=== PATIENT | male | born 1950 | race Caucasian/White ===

== ENCOUNTER 2017-12-14 11:00 | Emergency (ER) | payer MEDICARE ==
[2017-12-14 11:13] VITALS: BP 130/69
--- NOTE | 2017-12-14 11:56 | ER Document Report ---
ED Skin Rash/Insect Bite/Abscs - General Chief Complaint: Abscess Stated Complaint: POSSIBLE ABSCESS Time Seen by Provider: 12/14/17 11:38 Mode of Arrival: Ambulatory Information source: Patient TRAVEL OUTSIDE OF THE [place] IN LAST 30 DAYS: No - HPI Patient complains to provider of: Tender/swollen area Onset: Last week Notes: Patient is here with complaints of possible abscess to the left buttocks/upper leg area. States that this is been present for the last few weeks. His son opened it up about a week and a half ago and it seemed to be better until about 2 days ago when it became sore and swollen again. He denies fever. He denies diabetes. He denies nausea, vomiting, diarrhea. Pain is worse with sitting on the area, better with standing or rest. He denies any other rashes. No abdominal pain. No chest pain or shortness of breath. He denies any other complaints at this time. - Related Data Allergies/Adverse Reactions: Sulfa (Sulfonamide Antibiotics) Allergy (Verified 12/14/17 11:05) Past Medical History - Social History Smoking Status: Never Smoker Chew tobacco use (# tins/day): No Frequency of alcohol use: None Drug Abuse: None Family History: Reviewed & Not Pertinent Patient has suicidal ideation: No Patient has homicidal ideation: No Renal/ Medical History: Denies: Hx Peritoneal Dialysis Past Surgical History: Reports: Hx Orthopedic Surgery Review of Systems - Review of Systems -: Yes All other systems reviewed and negative Physical Exam - Vital signs Vitals: Temp Pulse Resp BP Pulse Ox 97.6 F 63 16 130/69 H 97 12/14/17 11:11 12/14/17 11:11 12/14/17 11:11 12/14/17 11:11 12/14/17 11:11 - Notes Notes: GENERAL: alert, cooperative, nontoxic, no distress. HEAD: normocephalic, atraumatic EYES: conjunctiva pink without discharge, no external redness or swelling. EARS: no external swelling, no external redness NOSE: atraumatic, no external swelling MOUTH/THROAT: mucous membranes moist and pink NECK: soft, supple, full range of motion, no meningismus. CHEST: no distress, lungs clear and equal throughout. No wheezing, rales, rhonchi. CARDIAC: regular rate and rhythm, no murmur, normal capillary refill, normal pulses. BACK: full range of motion, no CVA tenderness. EXTREMITIES: full range of motion of all extremities. No redness, no swelling. NEURO: alert and oriented 3, no focal deficits, full range of motion of all extremities. PYSCH: appropriate mood, affect. Patient is cooperative. SKIN: pink, warm, dry, no rash. 2 cm fluctuant abscess to the left lower buttocks/upper leg area. Minimal redness over top the abscess, no significant surrounding cellulitis. Tenderness to palpation. No drainage. Course - Re-evaluation Re-evalutation: 12/14/17 12:37 The patient is nontoxic appearing with stable vitals. He is here with an abscess to the left buttocks/upper leg area. States that this was present a few weeks ago and his son drained it and it seemed to be better until a few days ago when it became swollen and tender again. He is noted to have a small abscess to this area. There is mild redness over top of the abscess only, no significant surrounding cellulitis. He is afebrile. He has a benign exam otherwise. An I&D was performed at the bedside with a moderate amount of purulent material drained. A sterile dressing was applied. The patient tolerated the procedure well with no immediate complications. Patient will be discharged home on clindamycin with instructions to apply warm compresses. He will be given a small supply of pain medication as well. Follow-up if not improved in the next 48 hours, sooner for worsening pain, fever, difficulty breathing or swallowing, or for any further concerns. The patient is noted to have elevated blood pressure during today's emergency department visit. The patient was informed of this finding. The patient was instructed that this may be related to pre-hypertension and requires further evaluation with a primary care provider. The patient has no hypertensive symptoms at this time. The patient's emergency department workup and current diagnosis were explained to the patient and or family. Follow-up instructions were provided. Medications if prescribed were discussed. Instructions for when to return to the emergency department including specific worrisome symptoms were discussed with the patient and/or family. - Vital Signs Vital signs: Temp Pulse Resp BP Pulse Ox 97.6 F 63 16 130/69 H 97 12/14/17 11:11 12/14/17 11:11 12/14/17 11:11 12/14/17 11:11 12/14/17 11:11 Procedures - Incision and Drainage Left leg Type: Simple Anesthetic type: 1% Lidocaine Blade size: 11 I&D procedure: Shurclens applied, Other - Hemostats used to break up loculations. Incision Method: Incision made by scalpel Amount/type of drainage: Moderate purulent drainage. Discharge - Discharge Clinical Impression: Abscess of left leg Condition: Stable Disposition: HOME, SELF-CARE Instructions: Abscess ([facility]), Post Incision and Drainage, Oral Narcotic Medication ([facility]) Additional Instructions: Take medications as prescribed. Apply warm compresses to sore area. Follow-up if not improving in the next 48 hours, sooner for worsening pain, high fever, increasing redness, persistent vomiting, or for any further concerns. Your blood pressure was elevated during today's visit. Have this rechecked with your doctor. The medication you were prescribed today may cause drowsiness. Do not drive or operate heavy machinery while taking this medication. Prescriptions: Clindamycin HCl 300 mg PO QID #40 capsule Hydrocodone/Acetaminophen [[place]ield 5-325 mg Tablet] 2 tab PO Q6H PRN #10 tab PRN Reason: Forms: Elevated Blood Pressure, Smoking Cessation Education Referrals: [facility] [Provider Group] - Follow up as needed
== END 2017-12-14 12:54 | disposition home or self-care (01) ==
LOC: ER 11:00
DX: L02.416 Cutaneous abscess of left lower limb (principal); R03.0 Elevated blood-pressure reading, without diagnosis of hypertension; Z88.2 Allergy status to sulfonamides
CPT/HCPCS: 99283